=== PATIENT | female | born 1980 | race Caucasian/White ===

== ENCOUNTER → 2017-05-26 | Outpatient (REF) | payer OTHER | LOC: M LAB REF 13:45 | PROVIDERS: ATTEND Nurse Practitioner Adult Health | DX: L81.8 Other specified disorders of pigmentation (principal); Z51.81 Encounter for therapeutic drug level monitoring ==

== ENCOUNTER 2017-10-04 17:50 | Emergency (ER) | payer OTHER ==
[~2017-10-04] VITALS: Ht 167.6 cm; Wt 97.7 kg
[2017-10-04] MEDS ORDERED: WELLTAB40 PO (18:03)
[2017-10-04] MEDS ORDERED: MULT1TAB10 PO (18:05)
[2017-10-04] MEDS ORDERED: METHOCARBAMOL 500 MG TAB PO ONE (19:00)
[2017-10-04] MEDS ORDERED: NORCO, ANEXSIA 5/325MG TABLET (HYDROcodone/ACETAMINOPHEN) PO ONE (19:00)
--- NOTE | 2017-10-04 19:20 | REPUSA ---
CT of the cervical spine Clinical history: Pain. Technique: Multiple axial CT images were obtained through the cervical spine without administration o f contrast. Coronal and sagittal 3-D reconstructed images were also obtained. Comparison: None. Findings: The cervical vertebral bodies are in satisfactory positioning and alignment. No fractures or dislocat ions are demonstrated. The odontoid process is intact. Intervertebral disc spaces are well-maintained . There is no evidence of facet subluxation. The neural foramen appear grossly patent. The cervical c ranial junction is intact. The cervical spinal canal demonstrates normal caliber and contour without evidence of spinal stenosis. The surrounding soft tissues are within normal limits. Impression: Unremarkable CT examination of the cervical spine.
[2017-10-04] MEDS ORDERED: NORCOTAB PO (20:03)
[2017-10-04] MEDS ORDERED: ROBA500T PO (20:03)
[2017-10-04] MEDS ORDERED: IBUP80TA PO (20:03)
[2017-10-04 20:14] VITALS: BP 138/89
[2017-10-04] MEDS ORDERED: NORCO 5/325MG TABLET (BULK FOR ED) PO ONE (20:15)
== END 2017-10-04 20:17 | disposition home or self-care (01) ==
LOC: M ED 17:50
DX: S16.1XXA Strain of muscle, fascia and tendon at neck level, initial encounter (principal); V49.49XA Driver injured in collision with other motor vehicles in traffic accident, initial encounter; Y92.410 Unspecified street and highway as the place of occurrence of the external cause; Y93.89 Activity, other specified; Y99.8 Other external cause status; Z79.899 Other long term (current) drug therapy

== ENCOUNTER 2018-01-04 22:42 | Emergency (ER) | payer OTHER ==
[2018-01-05 00:35] LABS: INTERNAL CONTROL NO RESULT
[2018-01-05 02:07] LABS: INFLUENZA A AMPLIFICATION NEGATIVE (NEGATIVE); INFLUENZA B AMPLIFICATION NEGATIVE (NEGATIVE)
== END 2018-01-05 02:32 | disposition home or self-care (01) ==
LOC: M ED 22:42
DX: J06.9 Acute upper respiratory infection, unspecified (principal); B00.1 Herpesviral vesicular dermatitis; F32.9 Major depressive disorder, single episode, unspecified; Z79.899 Other long term (current) drug therapy
CPT/HCPCS: 87502